=== PATIENT | male | born 1985 | race Two or more races ===

== ENCOUNTER 2016-08-12 21:02 | Emergency (ER) | payer SELFPAY ==
[~2016-08-12] VITALS: Ht 172.7 cm; Wt 65.0 kg
[~2016-08-12 21:02] MED LIST: IOHEXOL-300 100 ML BOTTLE ONE; SODIUM CHLORIDE 0.9% 10ML VIAL ONE
[2016-08-12] MEDS ORDERED: LORAZEPAM 1MG TABLET PO ONE (22:30)
[2016-08-12 22:50] LABS: BASOPHILS % 0.2 % (0.0-2.0); HEMATOCRIT. 50.8 % (42.0-52.0); HEMOGLOBIN. 17.3 g/dL (14.0-18.0); MEAN CORPUSCULAR HEMOGLOBIN 31.2 pg (28.0-32.0); MEAN CORPUSCULAR HGB CONC 34.1 g/dL (31.0-37.0); MEAN CORPUSCULAR VOLUME 91.3 fL (80.0-94.0); MEAN PLATELET VOLUME 8.6 fl (7.4-10.4); MONOCYTES % 7.8 % (2.0-8.0); PLATELET 355 x1000/uL (130-400); RED BLOOD CELL COUNT 5.56 mill/uL (4.7-6.1); RED CELL DISTRIBUTION WIDTH 15.1 % (11.6-14.6); WHITE BLOOD COUNT 16.7 x1000/uL (4.5-11.0)
[2016-08-12 22:57] LABS: CHLORIDE 99 mEq/L (98-107)
[2016-08-12 23:00] LABS: ALBUMIN 4.6 g/dL (3.4-5.0); ANION GAP 20; CARBON DIOXIDE 22 mEq/L (21-32); INDEX HEMOLYSI 1 (1-3); INDEX ICTERIC 1 (1-4); INDEX LIPEMIC 1 (1-3)
[2016-08-12] MEDS ORDERED: KETOROLAC 30MG/ML VIAL IV ONE (23:00)
[2016-08-12] MEDS ORDERED: LORAZEPAM 2MG/ML CPJ IV ONE (23:00)
[2016-08-12 23:02] LABS: ETHANOL BLOOD < 10 mg/dL; UREA NITROGEN BLOOD 24 mg/dL (7-21)
[2016-08-12 23:04] LABS: ALANINE AMINOTRANSFERASE 18 IU/L (13-61); eGFR > 60 mL/min (>60)
[2016-08-13 00:21] LABS: CLARITY URINE CLOUDY (CLEAR); COLOR URINE DARK YELLOW (YELLOW); GLUCOSE URINE NEGATIVE (NEGATIVE); KETONES URINE 4+ (NEGATIVE); LEUKOCYTE ESTERASE URINE NEGATIVE (NEGATIVE); NITRITE URINE NEGATIVE (NEGATIVE); OCCULT BLOOD URINE NEGATIVE (NEGATIVE); PROTEIN URINE 1+ (NEGATIVE); SPECIFIC GRAVITY URINE 1.059 (1.005-1.030)
[2016-08-13 00:32] LABS: *AMPHETAMINES SCREEN URINE PRESUMTIVE POSITIVE (NEGATIVE); *BARBITURATES SCREEN URINE NEGATIVE (NEGATIVE); *BENZODIAZEPINES SCREEN URINE NEGATIVE (NEGATIVE); *COCAINE SCREEN URINE NEGATIVE (NEGATIVE); CANNABINOID URINE SCREEN PRESUMTIVE POSITIVE (NEGATIVE); ECSTASY MDMA SCREEN URINE CONF.TEST INDICATED (NEGATIVE); METHADONE URINE SCREEN NEGATIVE (NEGATIVE); OPIATES URINE SCREEN NEGATIVE (NEGATIVE); PHENCYCLIDINE URINE SCREEN NEGATIVE (NEGATIVE)
[2016-08-13] MEDS ORDERED: CLINDAMYCIN 900 MG in DEXTROSE 5% WATER 50 ML IV ONE (01:00)
[2016-08-13] MEDS ORDERED: SODIUM CHLORIDE 0.9% 1,000 ML IV ONE (01:00)
[2016-08-13] MEDS ORDERED: PIPERACILLIN SODIUM/TAZOBACTAM 4.5 G in DEXT 5% WATER 100 ML IV SCH (01:00)
[2016-08-13 01:06] LABS: SQUAMOUS EPITHELIAL CELL URINE NONE SEEN /lpf (RARE/1+)
[2016-08-13 01:07] LABS: BACTERIA URINE NONE SEEN; RBC URINE 0-2 /hpf (0-2)
[2016-08-13 01:08] LABS: HYALINE CASTS URINE 0-5 /lpf
[2016-08-13] MEDS ORDERED: LORAZEPAM 2MG/ML CPJ IV ONE (01:15)
[2016-08-13 04:34] VITALS: BP 104/65
== END 2016-08-13 05:35 | disposition short-term general hospital (02) ==
LOC: ER 21:03
DX: J98.2 Interstitial emphysema (principal); J02.9 Acute pharyngitis, unspecified; M54.2 Cervicalgia; R45.1 Restlessness and agitation; J32.0 Chronic maxillary sinusitis; M24.80 Other specific joint derangements of unspecified joint, not elsewhere classified; F15.129 Other stimulant abuse with intoxication, unspecified; F12.129 Cannabis abuse with intoxication, unspecified; F11.129 Opioid abuse with intoxication, unspecified; I10 Essential (primary) hypertension
CPT/HCPCS: 36415; 70491; 71010; 71260; 80053; 80305; 81001; 83605; 85025; 87040; 96365; 96367; 96375; 96376; 99285; A4216; G0482; J1885; J2060; J2543; J3490; J7030; Q9967; Z7610; J7060